=== PATIENT | male | born 1950 | race Caucasian/White ===

== ENCOUNTER 2017-06-13 11:01 | Day surgery (SDC) | payer MEDICARE, OTHER ==
[~2017-06-13] VITALS: Ht 177.8 cm; Wt 95.8 kg
[~2017-06-13 11:01] MED LIST: FOLI400; Hair, Skin & N1 EACH; LEVSOD137; LINZESS145 MCG; METTREX2.5; Omeprazole20 M1; SENN187; TADA10TA
== END 2017-06-13 12:53 | disposition home or self-care (01) ==
LOC: ORSCSDS 11:01
PROVIDERS: Internal Medicine Gastroenterology
PROC: 0DB68ZX Excision of Stomach, Via Natural or Artificial Opening Endoscopic, Diagnostic (ICD-10-PCS; principal; 2017-06-13 13:00)
DX: R12 Heartburn (principal); K31.7 Polyp of stomach and duodenum; K59.00 Constipation, unspecified; K21.9 Gastro-esophageal reflux disease without esophagitis; E03.9 Hypothyroidism, unspecified; Z79.899 Other long term (current) drug therapy
CPT/HCPCS: 88305; 88342; J0330; J1980; J2405

== ENCOUNTER 2019-05-18 11:48 | Day surgery (SDC) | payer MEDICARE, OTHER ==
[~2019-05-18] VITALS: Ht 180.3 cm; Wt 93.2 kg
[~2019-05-18 11:48] MED LIST changes: +LEVSOD137 PO; +LINZESS145 MCG PO; +MULTIVITAMINS1 EAC3 PO; +OMEP20ER PO; +THERA-D2000 UNIT PO; +Viagra100 MG PO
== END 2019-05-18 13:50 | disposition home or self-care (01) ==
LOC: ORSCSDS 11:48
PROVIDERS: Internal Medicine Gastroenterology
PROC: 0DB58ZX Excision of Esophagus, Via Natural or Artificial Opening Endoscopic, Diagnostic (ICD-10-PCS; principal; 2019-05-18 13:00)
PROC: 0DB68ZX Excision of Stomach, Via Natural or Artificial Opening Endoscopic, Diagnostic (ICD-10-PCS; principal; 2019-05-18 13:00)
PROC: 0DBL8ZX Excision of Transverse Colon, Via Natural or Artificial Opening Endoscopic, Diagnostic (ICD-10-PCS; principal; 2019-05-18 13:00)
DX: K21.9 Gastro-esophageal reflux disease without esophagitis (principal); R10.32 Left lower quadrant pain; R07.89 Other chest pain; K31.7 Polyp of stomach and duodenum; D12.3 Benign neoplasm of transverse colon; K57.30 Diverticulosis of large intestine without perforation or abscess without bleeding; E03.9 Hypothyroidism, unspecified; Z79.899 Other long term (current) drug therapy
CPT/HCPCS: 88305; J2704; J7120

== ENCOUNTER → 2020-03-21 | Outpatient (CLI) | payer MEDICARE, OTHER ==
[~2020-03-21] MED LIST changes: +ASPIR 8181 M1; +PANT40
== END | disposition home or self-care (01) ==
LOC: PLD 12:09 → LAB SHORT 12:09
DX: L57.0 Actinic keratosis (principal)
CPT/HCPCS: 88304; 88305

== ENCOUNTER 2020-05-09 06:52 | Day surgery (SDC) | payer MEDICARE, OTHER ==
[~2020-05-09] VITALS: Ht 177.8 cm; Wt 92.0 kg
[~2020-05-09 06:52] MED LIST changes: -ASPIR 8181 M1; -PANT40
[2020-05-09] MEDS ORDERED: PANT40 (07:17)
[2020-05-09] MEDS ORDERED: ASPIR 8181 M1 (07:17)
== END 2020-05-09 08:42 | disposition home or self-care (01) ==
LOC: ORSCSDS 06:52
PROVIDERS: Internal Medicine Gastroenterology
PROC: 0DB78ZX Excision of Stomach, Pylorus, Via Natural or Artificial Opening Endoscopic, Diagnostic (ICD-10-PCS; principal; 2020-05-09 08:00)
PROC: 0DB58ZX Excision of Esophagus, Via Natural or Artificial Opening Endoscopic, Diagnostic (ICD-10-PCS; principal; 2020-05-09 08:00)
DX: K21.9 Gastro-esophageal reflux disease without esophagitis (principal); K31.7 Polyp of stomach and duodenum; R10.13 Epigastric pain; E03.9 Hypothyroidism, unspecified; Z85.46 Personal history of malignant neoplasm of prostate; E78.5 Hyperlipidemia, unspecified; G47.33 Obstructive sleep apnea (adult) (pediatric); Z79.899 Other long term (current) drug therapy
CPT/HCPCS: 88305; 88342; J0461; J2405; J2704; J7120

== ENCOUNTER → 2022-09-30 | Outpatient (CLI) | payer MEDICARE, OTHER ==
[~2022-09-30] MED LIST changes: +ASPIR 8181 M1; +PANT40
== END | disposition home or self-care (01) ==
LOC: PLD 09:14 → LAB SHORT 09:14
DX: D48.5 Neoplasm of uncertain behavior of skin (principal)
CPT/HCPCS: 88305

== ENCOUNTER → 2022-10-24 | Outpatient (CLI) | payer MEDICARE, OTHER | LOC: LAB 11:45 → LAB SHORT 11:45 | DX: R05.9 Cough, unspecified (principal) | CPT/HCPCS: 87070; 87205 ==

== ENCOUNTER 2024-03-30 11:16 | Emergency (ER) | payer MEDICARE, OTHER ==
[~2024-03-30] VITALS: Ht 177.8 cm; Wt 90.7 kg
[2024-03-30 13:40] VITALS: BP 158/77
== END 2024-03-30 13:38 | disposition home or self-care (01) ==
LOC: ER 11:16
DX: H53.9 Unspecified visual disturbance (principal); R51.9 Headache, unspecified; Z79.82 Long term (current) use of aspirin; Z79.899 Other long term (current) drug therapy; Z88.2 Allergy status to sulfonamides; Z88.1 Allergy status to other antibiotic agents; Z91.040 Latex allergy status
CPT/HCPCS: 99283

== ENCOUNTER 2024-05-13 13:30 | Day surgery (SDC) | payer MEDICARE, OTHER ==
[~2024-05-13] VITALS: Ht 177.8 cm; Wt 94.7 kg
[~2024-05-13 13:30] MED LIST changes: +Atropine Sulfate 0.1 MG/ML 10ML SYR ONE; +Glycopyrrolate 0.2 MG/ML 1MLVIAL ONE; +Lactated Ringer's 1,000 ML IV ONE; +Lidocaine 2% 5 ML SDV ONE; +Lidocaine HCl/Pf 1% 5 ML VIAL ONE; +Methylene Blue 1% 100 MG/10 ML VIAL ONE; +Ondansetron HCl 2 MG / ML 2ML Vial ONE; +ePHEDrine Sulfate 50 MG/ML 1ML Injection ONE; +propofoL 50 ML IV ONE
[2024-05-13] MEDS ORDERED: B12-FOLIC ACID1 EACH (13:51)
[2024-05-13] MEDS ORDERED: Lactated Ringer's 1,000 ML IV ONE (15:06)
[2024-05-13 16:38] VITALS: BP 99/64
== END 2024-05-13 16:30 | disposition home or self-care (01) ==
LOC: ORSCSDS 13:30
PROVIDERS: Internal Medicine Gastroenterology
PROC: 0DJD8ZZ Inspection of Lower Intestinal Tract, Via Natural or Artificial Opening Endoscopic (ICD-10-PCS; principal; 2024-05-13 15:15)
DX: Z12.11 Encounter for screening for malignant neoplasm of colon (principal); Z86.0101 Personal history of adenomatous and serrated colon polyps; Z90.49 Acquired absence of other specified parts of digestive tract; K21.9 Gastro-esophageal reflux disease without esophagitis; E03.9 Hypothyroidism, unspecified; K57.30 Diverticulosis of large intestine without perforation or abscess without bleeding; Z79.899 Other long term (current) drug therapy
CPT/HCPCS: J0461; J2003; J2405; J2704; J7120; Q9968